=== PATIENT | female | born 1995 | race Caucasian/White ===

== ENCOUNTER 2023-03-07 12:54 | Outpatient (CLI) | payer MEDICAID, SELFPAY ==
--- NOTE | 2023-03-07 13:03 | US_ITS ---
WS: [id number] ULTRASOUND BREAST LEFT TECHNIQUE: Ultrasound left breast focused area of concern. CLINICAL INFORMATION: LT BR PAIN COMPARISON: None. FINDINGS: Ultrasound LEFT breast at the 1 to 5 o'clock position. Normal underlying parenchymal tissue. No cysti c or solid lesions. No lesions to target for biopsy. IMPRESSION: No suspicious findings Recommend annual screening mammography age 40
== END 2023-03-07 12:55 | disposition home or self-care (01) ==
PROVIDERS: PCP Family Medicine; Visit Provider Family Medicine
DX: N64.4 Mastodynia (principal)
CPT/HCPCS: 76642

== ENCOUNTER 2023-11-08 16:07 | Outpatient (CLI) | payer MEDICAID, SELFPAY ==
--- NOTE | 2023-11-08 16:27 | USR_ITS ---
PROCEDURE INFORMATION: Exam: US Nonobstetric Pelvis; Complete Exam date and time: 11/08/2023 4:51 PM Age: 28 years old Clinical indication: Pelvic pain; Additional info: Abdominal cramps; Vaginal discharge TECHNIQUE: Imaging protocol: Transabdominal pelvic nonobstetric ultrasound. Complete exam. Real time ultrasound with image documentation. COMPARISON: No relevant prior studies available. FINDINGS: Uterus: The uterus measures 8.8 x 6.6 x 6 cm. Endometrial stripe measures 7 mm. An IUD is properly positioned within the endometrial cavity. Right ovary/adnexa: Ovary is normal. No mass. Normal blood flow. Left ovary/adnexa: The left ovary contains a 2 cm simple cyst. Good Doppler flow noted. Intraperitoneal space: No intraperitoneal fluid. Urinary bladder: Normal. US/US pelvic complete* [id number] IMPRESSION: 1. IUD in good position 2. Small left ovarian cyst
== END 2023-11-08 16:08 | disposition home or self-care (01) ==
LOC: RAD 16:07
PROVIDERS: PCP Family Medicine; Visit Provider Family Medicine
DX: R10.2 Pelvic and perineal pain (principal); N83.292 Other ovarian cyst, left side
CPT/HCPCS: 76856